=== PATIENT | male | born 1990 | race Two or more races ===

== ENCOUNTER 2025-01-28 22:50 | Inpatient (IN) | payer MEDICAID ==
[~2025-01-28] VITALS: Ht 162.6 cm; Wt 94.3 kg
[2025-01-28 23:20] VITALS: BP 150/105; TEMP 99; O2SAT 96
[2025-01-28 23:30] VITALS: BP 150/103; TEMP 99; O2SAT 96
[2025-01-28] MEDS ORDERED: ONDANSETRON HCL/PF 4 MG/2 ML VIAL IVP PRN (23:30)
[2025-01-28] MEDS ORDERED: MAG HYDROX/AL HYDROX/SIMETH 30 ML UDC PO PRN (23:30)
[2025-01-28] MEDS ORDERED: Z GUARD REMEDY 4 OZ OINT TP PRN (23:30)
[2025-01-28] MEDS ORDERED: HYDROMORPHONE 1 MG/1 ML DISP.SYRIN IV PRN (23:30)
[2025-01-28] MEDS ORDERED: MAGNESIUM HYDROXIDE 30 ML UDC PO PRN (23:30)
[2025-01-29] MEDS: HYDROMORPHONE 1 MG/1 ML DISP.SYRIN IV PRN (00:48)
[2025-01-29] MEDS: IV LR 1000 ML 1,000 ML IV SCH (00:49)
[2025-01-29 06:30] LABS: PLATELET COUNT (AUTO) 227 K/uL (150-450); RED BLOOD CELL COUNT(AUTO) 4.99 MIL/uL (4.5-6.0); RED CELL DISTRIBUTION WIDTH 13.7 % (11.5-15.0); WHITE BLOOD COUNT (AUTO) 9.9 K/uL (4.3-11.0)
[2025-01-29 07:11] LABS: ASPARTATE AMINOTRANSFERASE 26 U/L (15-37); CALCIUM, SERUM 8.9 mg/dL (8.5-10.1); CREATININE 0.9 mg/dL (0.6-1.3); PHOSPHORUS 4.3 mg/dL (2.5-4.9); SODIUM SERUM 137 mmol/L (136-145); TOTAL PROTEIN, SERUM 6.9 g/dL (6.4-8.2); UREA NITROGEN, BLOOD 9 mg/dL (7-18)
[2025-01-29] MEDS: PANTOPRAZOLE 40 MG TABLET.DR PO SCH (07:55)
[2025-01-29 08:00] VITALS: BP 127/77; TEMP 98.8; O2SAT 97
[2025-01-29] MEDS: ACETAMINOPHEN 325 MG TABLET PO PRN (08:06)
[2025-01-29 16:00] VITALS: BP 129/81; TEMP 98.4; O2SAT 100
[2025-01-29 20:00] VITALS: BP 120/76; TEMP 98.1; O2SAT 96
[2025-01-30 07:03] LABS: PLATELET COUNT (AUTO) 202 K/uL (150-450); RED BLOOD CELL COUNT(AUTO) 4.88 MIL/uL (4.5-6.0); RED CELL DISTRIBUTION WIDTH 13.5 % (11.5-15.0); WHITE BLOOD COUNT (AUTO) 7.5 K/uL (4.3-11.0)
[2025-01-30 08:00] VITALS: BP_SYST 119; BP_SYST 126; BP_DIAS 71; BP_DIAS 78; TEMP 98.1; TEMP 98.6; O2SAT 96; O2SAT 97
[2025-01-30 08:11] LABS: ASPARTATE AMINOTRANSFERASE 28.0 U/L (15-37); CALCIUM, SERUM 8.8 mg/dL (8.5-10.1); CREATININE 0.9 mg/dL (0.6-1.3); SODIUM SERUM 137.0 mmol/L (136-145); TOTAL PROTEIN, SERUM 6.9 g/dL (6.4-8.2); UREA NITROGEN, BLOOD 6.0 mg/dL (7-18)
[2025-01-30 16:00] VITALS: BP 126/81; TEMP 97.5; O2SAT 96
[2025-01-30 20:00] VITALS: BP 126/71; TEMP 98.1; O2SAT 96
[2025-01-31 07:48] LABS: PLATELET COUNT (AUTO) 207 K/uL (150-450); RED BLOOD CELL COUNT(AUTO) 4.80 MIL/uL (4.5-6.0); RED CELL DISTRIBUTION WIDTH 13.4 % (11.5-15.0); WHITE BLOOD COUNT (AUTO) 7.0 K/uL (4.3-11.0)
[2025-01-31 07:54] LABS: CALCIUM, SERUM 8.9 mg/dL (8.5-10.1); CREATININE 0.9 mg/dL (0.6-1.3); SODIUM SERUM 138.0 mmol/L (136-145); UREA NITROGEN, BLOOD 7.0 mg/dL (7-18)
== END 2025-01-31 14:45 | disposition home or self-care (01) | DRG 282 ==
LOC: MED 22:50
PROVIDERS: ADMIT Registered Nurse Psychiatric/Mental Health
DX: K85.20 Alcohol induced acute pancreatitis without necrosis or infection (principal); K76.0 Fatty (change of) liver, not elsewhere classified; R74.01 Elevation of levels of liver transaminase levels; Z87.81 Personal history of (healed) traumatic fracture; R19.7 Diarrhea, unspecified; K82.4 Cholesterolosis of gallbladder; Y90.9 Presence of alcohol in blood, level not specified
CPT/HCPCS: 36415; 80048-TC; 80053-TC; 80076-TC; 83690-TC; 83735-TC; 84100-TC; 85025-TC; 87081-TC; A4223; G0378; J1171; J3490; J7120